=== PATIENT | male | born 1965 | race Caucasian/White ===

== ENCOUNTER 2017-07-27 17:13 | Inpatient (IN) | payer OTHER ==
[2017-07-25 09:36] VITALS: BMI 30.4
--- OUTSIDE RECORDS SUMMARY | 2017-07-27 17:16 | XMS | Clinical Summary ---
:1965 Author Organization [facility] Address [address] [place] [address] Phone Care Team Providers Name Role Phone , Primary Care Provider Unavailable Allergies Not on File Current Medications Not on file Active Problems Not on file Social History Tobacco Use Types Packs/Day Years Used Date Never Assessed Sex Assigned at Date Recorded Not on file Last Filed Vital Signs Not on file Plan of Treatment Not on file Results Not on filefrom Last 3 Months
[2017-07-27] MEDS ORDERED: Acetaminophen/Codeine 30-300mg Tablet PO PRN ×2 (19:37)
[2017-07-27] MEDS: Gabapentin 300 MG CAP PO SCH (20:56)
[2017-07-27] MEDS: Rifaximin 550 MG TAB PO SCH (20:56)
[2017-07-27] MEDS: Cyclobenzaprine 10 MG TAB PO SCH (20:56)
[2017-07-27] MEDS: Insulin Detemir 100 UNITS/ML 50 UNITS in Pre-Filled Syringe SC SCH (21:01)
[2017-07-27] MEDS ORDERED: HumaLOG 300 UNITS/3 ML VIAL SC PRN ×2 (23:07)
[2017-07-27] MEDS ORDERED: Dextrose 50% Abboject 50 ML SYRINGE SLOW IVP PRN (23:07)
[2017-07-27] MEDS ORDERED: Dextrose 5% in Water 1,000 ML IV PRN (23:07)
--- NOTE | 2017-07-27 23:15 | PDOC.PN ---
- Subjective Encounter Start Date: 07/27/17 Encounter Start Time: 23:00 CC: Back pain Sub: Consult called for medical management. Pt admitted for back surgery. Pt denies any complaints - Objective Vital Signs & Weight: Vital Signs (12 hours) Temp Pulse Pulse Pulse Resp BP BP 07/27/17 22:56 97.9 F 70 18 118/63 07/27/17 22:19 98.2 F 66 18 114/70 07/27/17 20:00 98.2 F 66 18 07/27/17 18:43 98.3 F 71 18 BP Pulse Ox 07/27/17 22:56 96 07/27/17 22:19 98 07/27/17 20:00 114/70 98 07/27/17 18:43 131/79 98 Weight Weight 200 lb I&O: 07/26/17 07/27/17 07/28/17 06:59 06:59 06:59 Intake Total 0 Balance 0 Additional Labs: Accuchecks 07/27/17 20:49 POC Glucose 148 H Phys Exam - Physical Examination Constitutional: NAD HEENT: moist MMs Neck: no JVD Respiratory: no wheezing, no rales, no rhonchi normal effort Cardiovascular: RRR, no significant murmur, no rub no gallop Gastrointestinal: soft, non-tender no guarding, no rebound tenderness Musculoskeletal: no edema Neurological: non-focal, normal sensation, moves all 4 limbs Psychiatric: normal affect Skin: no rash Dx/Plan - Plan * . Pt is 52 yrs old male now admitted to hospital for back pain 1. HTN 2. DM type 2 3. Thrombocytopenia 4. H/O Hepatitis B 5. Back pain Plan: 1. Will continue bp meds. We will monitor BP closely 2. Monitor blood sugars. Will start insulin sliding scale. 3. currently getting platelet transfusion. We will monitor platelet count 4. Pain + DVT & GI prophylaxis per primary team case d/w pt & RN
[2017-07-28] MEDS: Sodium Chloride 0.9% 1,000 ML IV SCH ×2 (01:07→05:47)
[2017-07-28 06:10] LABS: Anion Gap 10 mmol/L (10-20); BUN (Urea Nitrogen) 14 mg/dL (8.4-25.7); Calc. Creatinine Clearance 123 mL/min (70-130); Calcium 8.8 mg/dL (7.8-10.44); Carbon Dioxide 24 mmol/L (22-29); Chloride 108 mmol/L (98-107); Estimated GFR-MDRD 90
[2017-07-28 06:24] LABS: #Basophils 0.1 thou/uL (0.0-0.2); #Eosinphils 0.1 thou/uL (0.0-0.7); #Lymphocytes 1.1 thou/uL (1.20-3.40); #Monocytes 0.3 thou/uL (0.11-0.59); #Neutrophils 1.9 thou/uL (1.40-6.50); %Basophils 1.7 % (0.0-1.0); %Eosinophils 3.6 % (0.0-10.0); %Lymphocytes 31.3 % (21.0-51.0); %Monocytes 9.1 % (0.0-10.0); Hematocrit 40.1 % (42.0-52.0); Mean Platelet Volume 7.9 fL (7.4-10.4); Red Blood Cell (RBC) Count 4.37 mill/uL (4.70-6.10); White Blood Cell (WBC) Count 3.5 thou/uL (4.8-10.8)
[2017-07-28] MEDS ORDERED: Sodium Chloride 0.9% 10 ML ONE (06:26)
[2017-07-28] MEDS ORDERED: Levofloxacin 500 mg/D5W 100 ml Premix Bag ONE (07:43)
[2017-07-28] MEDS ORDERED: Clindamycin/D5W 900 mg/50 ml Premix Bag ONE (07:44)
[2017-07-28] MEDS ORDERED: Fentanyl 100 MCG/2 ML VIAL ONE ×5 (08:04→12:23)
[2017-07-28] MEDS ORDERED: Propofol 1,000 MG/100 ML VIAL IV ONE (08:05)
[2017-07-28] MEDS ORDERED: Dexamethasone 20 MG/5 ML VIAL ONE (08:40)
[2017-07-28] MEDS ORDERED: diphenhydrAMINE HCl 50 MG/ML 1 ML VIAL ONE (08:40)
[2017-07-28] MEDS ORDERED: Propofol 200 MG/20 ML VIAL ONE (08:40)
[2017-07-28] MEDS ORDERED: Glycopyrrolate 0.2 MG/ML 5 ML SYRINGE ONE (08:40)
[2017-07-28] MEDS ORDERED: Ondansetron HCl/PF 4 MG/2 ML Vial ONE (08:40)
[2017-07-28] MEDS ORDERED: Meperidine HCl/PF 25 MG/ML VIAL SLOW IVP PRN (09:27)
--- NOTE | 2017-07-28 10:23 | OP ---
DATE OF PROCEDURE: 07/28/2017 SURGEON: Ralph Tapia M.D. BILL CLERK: Chris Hsieh PA-C PROCEDURE: Exploration spinal fusion L4-5, L4-L5 laminectomy, facetectomy, and foraminotomy, interb terri arthrodesis, posterolateral arthrodesis, pedicle screw instrumentation L5-S1, demineralized bone matrix, local morselized autograft. PROCEDURE IN DETAIL: The patient was brought into the operating room and intubated. He was rolled in the prone position on gel-filled chest rolls. The previous incision was reopened and extended in feriorly. We exposed the region of the prior fusion and it seemed to be solid. Because there were no posterior screws at L5, we did not remove any hardware. We performed a left L5-S1 laminectomy, f acetectomy, and foraminotomy, completely decompressing left L5. We explored the intervertebral disk for the purpose of intravertebral arthrodesis. We ultimately had decided that the corridor was too narrow to place an intervertebral device. We next placed pedicle screws at L5 and S1 bilaterally u sing lateral fluoroscopic guidance and the positioning was confirmed with rotational x-ray. Alexandr was secured between the screws and used for some distraction across left L5 neural foramen. All nuts w ere final tightened and the wound was extensively irrigated with Bacitracin irrigation and immaculat e hemostasis was secured. A combination of demineralized bone matrix and local morselized autograft was laid over the laminar and posterolateral surfaces for the purpose of arthrodesis. Vancomycin p owder was applied and the wound was closed in anatomic layers over a drain.
[2017-07-28] MEDS ORDERED: Acetaminophen 325 MG TAB PO PRN (11:00)
[2017-07-28] MEDS ORDERED: Morphine Sulfate 2 MG/ML SYRINGE SLOW IVP PRN (11:00)
[2017-07-28] MEDS ORDERED: Ondansetron HCl/PF 4 MG/2 ML Vial IVP PRN (11:00)
[2017-07-28] MEDS ORDERED: Acetaminophen/Codeine 30-300mg Tablet PO PRN ×2 (11:00)
[2017-07-28] MEDS ORDERED: Acetaminophen 650 MG Suppository PR PRN (11:00)
[2017-07-28] MEDS ORDERED: Promethazine HCl 25 MG/ML VIAL IM PRN (11:00)
[2017-07-28] MEDS ORDERED: HYDROcodone/Acetaminophen 7.5/325 mg Tablet PO PRN ×2 (11:00)
[2017-07-28] MEDS ORDERED: tiZANidine HCl 4 MG TAB PO PRN (11:00)
[2017-07-28] MEDS ORDERED: diphenhydrAMINE HCl 25 MG CAP PO PRN (11:00)
[2017-07-28] MEDS ORDERED: Mag-Al 1200 mg/1200 mg/30 ML UDCUP PO PRN (11:00)
[2017-07-28] MEDS ORDERED: diphenhydrAMINE HCl 50 MG/ML 1 ML VIAL IVP PRN (11:00)
[2017-07-28] MEDS ORDERED: Milk Of Magnesia 30 ML UDCUP PO PRN (11:00)
[2017-07-28] MEDS ORDERED: Sodium Chloride 0.9% 1,000 ML IV SCH (11:00)
[2017-07-28] MEDS ORDERED: Promethazine HCl 12.5 MG SUPP PR PRN (11:00)
[2017-07-28] MEDS ORDERED: Promethazine HCl 25 MG/ML VIAL ONE (12:41)
[2017-07-28] MEDS: Gabapentin 300 MG CAP PO SCH ×3 (16:02→20:21)
[2017-07-28] MEDS: Cyclobenzaprine 10 MG TAB PO SCH ×3 (16:02→20:21)
[2017-07-28] MEDS: Rifaximin 550 MG TAB PO SCH ×2 (16:11→20:21)
[2017-07-28] MEDS: Insulin Regular 300 UNITS/3 ML VIAL SC SCH ×2 (16:11→18:21)
[2017-07-28] MEDS ORDERED: Insulin Regular 300 UNITS/3 ML VIAL ONE (18:16)
[2017-07-28] MEDS: Insulin Detemir 100 UNITS/ML 50 UNITS in Pre-Filled Syringe SC SCH (20:21)
[2017-07-28] MEDS ORDERED: Non-Formulary Item 1 EACH (Insulin Glargine,Hum.Rec.Anlog 50 UNIT) SQ SCH (21:00)
[2017-07-28] MEDS ORDERED: Non-Formulary Item 1 EACH (Omeprazole Magnesium [Prilosec Otc] 20 MG) PO SCH (21:00)
--- NOTE | 2017-07-28 21:25 | PRG ---
DATE OF SERVICE: 07/28/2017 SUBJECTIVE: This patient is doing a little better today. Denies any complaints. No nausea, no vom iting. He is going to go for back surgery today. PHYSICAL EXAMINATION: VITAL SIGNS: The patient's blood pressure is 130/82, afebrile, pulse 68, respirations 16. GENERAL: Patient is lying in bed in no apparent distress. HEENT: Atraumatic, normocephalic. Pupils equally round and react to light. Extraocular movements intact. Mucous membranes moist. NECK: Supple. No JVD. CHEST: Breath sounds heard. No rales or rhonchi. HEART: S1, S2. No murmurs or gallops. ABDOMEN: Soft. EXTREMITIES: No cyanosis, clubbing, edema. Distal pulses present. NEUROLOGIC: Alert, awake, and oriented. No cranial deficits. No sensorimotor deficits. LABORATORY DATA: WBC count is 3.5, hemoglobin is 14, potassium is 3.9, creatinine is 0.8. ASSESSMENT AND PLAN: 1. Back pain, follow primary care for surgery today. 2. Hypertension, stable. 3. Diabetes, on insulin sliding scale 4. Thrombocytopenia. We will monitor that. 5. History of hepatitis C, stable. Will work with primary for the
[2017-07-29] MEDS: Gabapentin 300 MG CAP PO SCH (08:31)
[2017-07-29] MEDS: Cyclobenzaprine 10 MG TAB PO SCH (08:31)
[2017-07-29] MEDS: Rifaximin 550 MG TAB PO SCH (08:31)
[2017-07-29] MEDS: Insulin Regular 300 UNITS/3 ML VIAL SC SCH (08:33)
[2017-07-29 08:54] VITALS: BP 113/68; TEMP 97.5
--- NOTE | 2017-07-29 11:47 | PDOC.PN ---
- Subjective Encounter Start Date: 07/29/17 Encounter Start Time: 11:45 Patient seen and examined. No new complaints. No overnight events - Objective MAR Reviewed: Yes Vital Signs & Weight: Vital Signs (12 hours) Temp Pulse Resp BP Pulse Ox 07/29/17 08:05 97.5 F L 62 18 113/68 96 07/29/17 04:15 98.2 F 70 16 101/57 L 95 07/29/17 00:00 98.4 F 71 16 112/68 94 L Weight Weight 200 lb I&O: 07/28/17 07/29/17 07/30/17 06:59 06:59 06:59 Intake Total 250 2350 500 Output Total 120 15 Balance 250 2230 485 Result Diagrams: 07/28/17 05:38 07/28/17 05:38 Additional Labs: Accuchecks 07/29/17 07/28/17 07/28/17 05:25 20:32 15:55 POC Glucose 281 H 390 H 244 H Phys Exam - Physical Examination HEENT: PERRLA Neck: no JVD Respiratory: no rales Cardiovascular: no significant murmur Gastrointestinal: non-tender Musculoskeletal: pulses present Neurological: moves all 4 limbs Psychiatric: A&O x 3 Dx/Plan (1) Diabetes mellitus Code(s): E11.9 - TYPE 2 DIABETES MELLITUS WITHOUT COMPLICATIONS Status: Acute (2) HTN (hypertension) Code(s): I10 - ESSENTIAL (PRIMARY) HYPERTENSION Status: Acute (3) Thrombocytopenia Code(s): D69.6 - THROMBOCYTOPENIA, UNSPECIFIED Status: Acute (4) Back pain Code(s): M54.9 - DORSALGIA, UNSPECIFIED Status: Acute - Plan * . continue current care, bp and sugar well controlled s/p back surg - f/u primary's plan
== END 2017-07-29 09:59 | disposition home or self-care (01) | DRG 460 ==
LOC: SURG A 17:13
PROVIDERS: ADMIT Neurological Surgery; ATTEND Neurological Surgery
PROC: 30233R1 Transfusion of Nonautologous Platelets into Peripheral Vein, Percutaneous Approach (ICD-10-PCS; 2017-07-27)
PROC: 0SG30A1 (ICD-10-PCS; principal; 2017-07-28)
PROC: 01NB0ZZ Release Lumbar Nerve, Open Approach (ICD-10-PCS; 2017-07-28)
PROC: 0SB40ZZ Excision of Lumbosacral Disc, Open Approach (ICD-10-PCS; 2017-07-28)
PROC: 8E0WXBF Computer Assisted Procedure of Trunk Region, With Fluoroscopy (ICD-10-PCS; 2017-07-28)
DX: M54.16 Radiculopathy, lumbar region (principal); D69.6 Thrombocytopenia, unspecified; I10 Essential (primary) hypertension; E11.9 Type 2 diabetes mellitus without complications; Z88.5 Allergy status to narcotic agent; Z88.0 Allergy status to penicillin; Z88.8 Allergy status to other drugs, medicaments and biological substances; Z86.19 Personal history of other infectious and parasitic diseases
CPT/HCPCS: 36415; 36416; 36430; 76001; 80048; 85025; 86850; 86900; 86901; A4216; C1713; C1768; J1100; J1200; J1815; J1956; J2270; J2405; J2550; J2704; J3010; J3370; J3490; P9035

== ENCOUNTER 2017-08-12 10:47 | Outpatient (CLI) | payer OTHER ==
--- NOTE | 2017-08-12 13:12 | RAD ---
TWO VIEWS LUMBAR SPINE: Comparison: 04-24-17 History: Follow up surgery. Low back pain radiating down the right leg. FINDINGS: Interval placement of bilateral transpedicular screws at L5 and S1. Stable transpedicular screws at L3-4. Stable disc prosthesis at L3-4 and stable metallic cage at L4-5. There is no significant rowley e in alignment. Dorsal column stimulator is re-demonstrated. IMPRESSION: Interval fusion changes of L5-S1. Additional findings as above. POS: [facility]
--- NOTE | 2017-08-12 16:13 | CT ---
CT OF THE LUMBAR SPINE WITHOUT CONTRAST: History: History of back surgery on 07-28-17 now with lower back pain radiating to the right leg. FINDINGS: Since the comparison examination there has been interval extension of the posterior lumbar interbody fusion from L3 through the S1 level. There is solid bony fusion involving the L3-4 and L4-5 interve rtebral levels. There are stable laminectomy changes involving the left aspect of L4 and L5. The right pedicle screw at S1 does abutt the margin of the superolateral aspect of the right S1 neur al foramina without definite impingement of the traversing S1 nerve. L5-S1: There is loss of disc space height and disc osteophyte complex inducing stable moderate right neural foraminal narrowing. The degree of neural foraminal narrowing involving the left neural fora jone is stable, mild in severity. The left L4-5 neural foramina is widely patent. There is stable mild right osseous neural foraminal narrowing. At L3-4 there is stable mild left neural foraminal narrowing. At L2-3 there is mild bilateral neural foraminal narrowing which is stable. At L1-2 there is mild broad based bulge without appreciable neural foraminal narrowing. At T12-L1 there is no appreciable central canal or neural foraminal narrowing. There is stable right nephrolithiasis. There is stable bulky adenopathy seen involving the retroperitoneum of the lower abdomen and pelvis. IMPRESSION: 1. Interval extension of the posterior lateral interbody fusion from L3 through S1. 2. The moderate right and mild left neural foraminal narrowing at L5-S1 is stable appearing. 3. Stable left neural foraminal narrowing at L3-4. 5. Persistent bulky adenopathy of the lower abdomen and pelvis. Differential considerations remain t he same as the prior examination from 08-20-16. CT of the abdomen and pelvis is recommended for furt her characterization. POS: [facility]
== END 2017-08-12 10:48 | disposition home or self-care (01) ==
LOC: TBSIIMAG 10:47
PROVIDERS: ATTEND Physician Assistant
DX: M54.16 Radiculopathy, lumbar region (principal); Z98.1 Arthrodesis status
CPT/HCPCS: 72100; 72131

== ENCOUNTER 2017-10-28 14:07 | Outpatient (CLI) | payer OTHER ==
[2017-10-28 14:50] LABS: Hematocrit 41.7 % (42.0-52.0); Mean Platelet Volume 8.1 fL (7.4-10.4); Red Blood Cell (RBC) Count 4.66 mill/uL (4.70-6.10); White Blood Cell (WBC) Count 4.3 thou/uL (4.8-10.8)
[2017-10-28 15:04] LABS: Anion Gap 10 mmol/L (10-20); BUN (Urea Nitrogen) 13 mg/dL (8.4-25.7); Calc. Creatinine Clearance 0 mL/min (70-130); Calcium 9.3 mg/dL (7.8-10.44); Carbon Dioxide 26 mmol/L (22-29); Chloride 107 mmol/L (98-107); Estimated GFR-MDRD 71
--- NOTE | 2017-10-28 18:05 | EKG ---
Test Reason : Blood Pressure : / mmHG Vent. Rate : 068 BPM Atrial Rate : 068 BPM P-R Int : 152 ms QRS Dur : 106 ms QT Int : 400 ms P-R-T Axes : 037 -18 015 degrees QTc Int : 425 ms Normal sinus rhythm Inferior infarct , age undetermined (possible, based on very small Q waves) Abnormal ECG Confirmed by DR. Anna BREWER (3) on 10/28/2017 6:05:05 PM Referred By: BJ Confirmed By:DR. Anna BREWER
== END 2017-10-28 14:08 | disposition home or self-care (01) ==
LOC: LABBT 14:07
PROVIDERS: ATTEND Neurological Surgery
DX: Z01.818 Encounter for other preprocedural examination (principal); M54.16 Radiculopathy, lumbar region
CPT/HCPCS: 80048; 93005; 93010

== ENCOUNTER 2017-10-29 06:06 | Inpatient (IN) | payer OTHER ==
[2017-10-29] MEDS ORDERED: Sodium Chloride 0.9% 10 ML ONE (06:24)
[2017-10-29] MEDS ORDERED: Clindamycin/D5W 900 mg/50 ml Premix Bag ONE (06:38)
[2017-10-29] MEDS ORDERED: Levofloxacin 500 mg/D5W 100 ml Premix Bag ONE (06:38)
[2017-10-29] MEDS ORDERED: Propofol 1,000 MG/100 ML VIAL IV ONE (06:52)
[2017-10-29] MEDS ORDERED: Fentanyl 100 MCG/2 ML VIAL ONE ×2 (07:04→09:30)
[2017-10-29] MEDS ORDERED: Midazolam HCl 2 mg/2 ml Vial ONE (07:04)
[2017-10-29] MEDS ORDERED: diphenhydrAMINE 25 MG CAP PO PRN ×2 (09:28→14:13)
[2017-10-29] MEDS ORDERED: Mag-Al 1200 mg/1200 mg/30 ML UDCUP PO PRN (09:28)
[2017-10-29] MEDS ORDERED: diphenhydrAMINE 50 MG/ML VIAL IVP PRN (09:28)
[2017-10-29] MEDS ORDERED: Milk Of Magnesia 30 ML UDCUP PO PRN (09:28)
[2017-10-29] MEDS ORDERED: Bisacodyl 10 MG SUPP PR PRN (09:28)
[2017-10-29] MEDS ORDERED: HYDROcodone/Acetaminophen 10/325 mg Tablet PO PRN ×2 (09:28)
[2017-10-29] MEDS ORDERED: Acetaminophen 650 MG Suppository PR PRN (09:28)
[2017-10-29] MEDS ORDERED: Morphine 4 MG/ML Carpuject SLOW IVP PRN ×2 (09:28→11:27)
[2017-10-29] MEDS ORDERED: Ondansetron HCl/PF 4 MG/2 ML Vial IM PRN (09:28)
--- NOTE | 2017-10-29 09:54 | OP ---
DATE OF SERVICE: 10/29/2017 SURGEON: Ralph Tapia M.D. RIVER GUIDE: Maria Isabel Mckeon PROCEDURE: Exploration of spinal fusion L5-S1, removal of hardware L5-S1, right L5-S1 facetectomy an d foraminotomy, posterolateral arthrodesis, pedicle screw instrumentation L5-S1, demineralized bone m atrix, local morselized autograft, BMP. PROCEDURE IN DETAIL: The patient was brought into the operating room, intubated. He was rolled in t he prone position on gel-filled chest rolls. The previous incision was reopened and the L5-S1 region was explored. There was no evidence of solid bony fusion and both sacral screws seemed to be somewh at loose. The prior nuts and rods were removed and both sacral screws were removed. We replaced the se with 8.5 mm diameter, 40 mm length screws at both S1 levels. Next, we performed a complete right L5-S1 facetectomy and foraminotomy and completely decompressed the right L5 nerve root. Rods were se cured between the screws, connected by nuts which were final tightened. A combination of BMP deminer alized bone matrix and local morselized autograft was laid over the laminar and posterolateral surfac es for the purpose of arthrodesis. Vancomycin powder was applied and the wound was closed in anatomi c layers.
[2017-10-29] MEDS ORDERED: Morphine 4 MG/ML VIAL ONE (10:05)
[2017-10-29] MEDS ORDERED: HYDROmorphone 0.5 MG/0.5 ML SYRINGE ONE (10:20)
[2017-10-29] MEDS ORDERED: Ketorolac Tromethamine 30 MG/ML VIAL ONE (10:33)
[2017-10-29] MEDS: Sodium Chloride 0.9% 1,000 ML IV SCH ×2 (11:00→23:20)
[2017-10-29] MEDS ORDERED: Non-Formulary Medication 1 EACH PO PRN (11:27)
[2017-10-29] MEDS ORDERED: Ondansetron HCl/PF 4 MG/2 ML Vial IVP PRN (11:27)
[2017-10-29] MEDS ORDERED: Ketorolac Tromethamine 30 MG/ML VIAL IM/IV PRN (11:27)
[2017-10-29] MEDS ORDERED: HYDROmorphone 2 MG/ML VIAL SLOW IVP PRN (11:27)
[2017-10-29] MEDS ORDERED: Morphine Sulfate 2 MG/ML SYRINGE SLOW IVP PRN (11:27)
[2017-10-29] MEDS ORDERED: Morphine 4 MG/ML VIAL SLOW IVP PRN ×2 (11:30)
[2017-10-29] MEDS: Ondansetron HCl/PF 4 MG/2 ML Vial IVP PRN (11:48)
--- NOTE | 2017-10-29 12:36 | PDOC.PN ---
- Subjective Encounter Start Date: 10/29/17 Encounter Start Time: 12:30 Subjective: c/o pain at operated site, just got morphine for it -: no sob or chest pain or palp -: is moving both lower extremities - Objective MAR Reviewed: Yes Vital Signs & Weight: Weight Weight 208 lb Additional Labs: Accuchecks 10/29/17 06:36 POC Glucose 193 H Phys Exam - Physical Examination HEENT: PERRLA, moist MMs Neck: no JVD, supple Respiratory: no wheezing, no rales Cardiovascular: RRR, no significant murmur Gastrointestinal: soft, non-tender, positive bowel sounds Musculoskeletal: no edema, pulses present Neurological: non-focal, moves all 4 limbs Psychiatric: A&O x 3 Dx/Plan (1) Diabetes mellitus Code(s): E11.9 - TYPE 2 DIABETES MELLITUS WITHOUT COMPLICATIONS Status: Chronic Qualifiers: Diabetes mellitus type: type 2 Diabetes mellitus complication status: with unspecified complications Diabetes mellitus detention insulin use: with detention use Qualified Code(s): E11.8 - Type 2 diabetes mellitus with unspecified complications; 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; Z79.4 - intermediate ( current) use of insulin; 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 Review of Systems - Medications/Allergies Allergies/Adverse Reactions: Allergies Allergy/AdvReac Type Severity Reaction Status Date / Time codeine Allergy Verified 07/25/17 09:36 Penicillins Allergy Verified 07/25/17 09:36 promethazine [From Phenergan] Allergy Verified 07/25/17 09:36 Medications: Current Medications Acetaminophen (Tylenol) 650 mg PO Q4H PRN PRN Reason: Headache/Fever or Pain(1-3) Acetaminophen (Tylenol) 650 mg SC Q4H PRN PRN Reason: Headache/Fever or Pain(1-3) Hydrocodone Bitart/Acetaminophen ([place] 10/325) 1 tab PO Q4H PRN PRN Reason: PAIN (1-3) Hydrocodone Bitart/Acetaminophen ([place] 10/325) 2 tab PO Q4H PRN PRN Reason: PAIN (4-6) Last Admin: 10/29/17 11:51 Dose: 2 tab Al Hydroxide/Mg Hydroxide (Maalox) 30 ml PO Q4H PRN PRN Reason: Heartburn or Indigestion Alogliptin Benzoate (Alogliptin) 12.5 mg PO QPM-WM SHIRIN Bisacodyl (Dulcolax) 10 mg SC Q12H PRN PRN Reason: Constipation Diphenhydramine HCl (Benadryl) 25 mg PO Q6H PRN PRN Reason: Itching Diphenhydramine HCl (Benadryl) 25 mg IVP Q6H PRN PRN Reason: Itching Fentanyl (Pacu-Sublimaze) 50 mcg SLOW IVP Q10MIN PRN PRN Reason: Moderate to Severe Pain/PACU Stop: 10/29/17 13:00 Gabapentin (Neurontin) 600 mg PO TID SHIRIN Hydromorphone HCl (Pacu-Dilaudid) 0.5 mg SLOW IVP Q10MIN PRN PRN Reason: Moderate to Severe Pain/PACU Stop: 10/29/17 13:00 Sodium Chloride (Normal Saline 0.9%) 1,000 mls @ 75 mls/hr IV .[id number] [facility] Clindamycin Phosphate/Dextrose (900 mg/ Device) 50 mls @ 100 mls/hr IVPB 1500, 2300 SHIRIN Stop: 10/29/17 23:29 Insulin Detemir 20 units/ (Miscellaneous Medication) 0.2 mls @ 0 mls/hr SC HS [facility] Insulin Human Lispro (Humalog) 0 units SC .CLARIFY SS PRN PRN Reason: HYPERGLYCEMIA Ketorolac Tromethamine (Pacu-Toradol) 30 mg IM/IV ONE PRN PRN Reason: Pain if not already given/OR Stop: 10/29/17 13:00 Magnesium Hydroxide (Milk Of Magnesium) 30 ml PO Q12H PRN PRN Reason: Constipation Metformin HCl (Glucophage) 1,000 mg PO QPM-WM [facility] Metoprolol Succinate (Toprol Xl) 25 mg PO BID [facility] Morphine Sulfate (Morphine) 4 mg SLOW IVP Q1H PRN PRN Reason: Severe Breakthrough Pain Last Admin: 10/29/17 11:48 Dose: 4 mg Morphine Sulfate (Morphine) 2 mg SLOW IVP Q1H PRN PRN Reason: Moderate Breakthrough Pain Morphine Sulfate (Pacu-Morphine Sulfate) 2 mg SLOW IVP Q10MIN PRN PRN Reason: Moderate to Severe Pain/PACU Stop: 10/29/17 13:00 Morphine Sulfate (Morphine) 4 mg SLOW IVP ONE PRN PRN Reason: Moderate - Severe Pain Stop: 10/29/17 13:00 Non-Formulary Medication () 0 each PO PRN PRN PRN Reason: FOR RR<12 OR O2 SAT<92%ON RA Stop: 10/29/17 13:00 Ondansetron HCl (Zofran) 4 mg IM Q24H PRN PRN Reason: Nausea/Vomiting Last Admin: 10/29/17 11:48 Dose: 4 mg Ondansetron HCl (Pacu-Zofran) 4 mg IVP ONE PRN PRN Reason: Nausea/Vomiting in PACU Stop: 10/29/17 13:00 Pantoprazole Sodium (Protonix) 40 mg PO BID [facility] Rifaximin (Xifaxan) 550 mg PO BID [facility] Sodium Chloride (Flush - Normal Saline) 10 ml IVF PRN PRN PRN Reason: Saline Flush Tizanidine HCl (Zanaflex) 4 mg PO Q6H PRN PRN Reason: MUSCLE SPASM
[2017-10-29] MEDS: Gabapentin 300 MG CAP PO SCH ×2 (13:25→20:53)
[2017-10-29] MEDS: tiZANidine HCl 4 MG TAB PO PRN (14:10)
[2017-10-29] MEDS ORDERED: Naloxone HCl 0.4 mg/ml Vial IV PRN (14:13)
[2017-10-29] MEDS ORDERED: Promethazine HCl 25 MG/ML VIAL IM PRN (14:13)
[2017-10-29] MEDS ORDERED: diphenhydrAMINE 50 MG/ML VIAL IM/IV PRN (14:13)
[2017-10-29] MEDS ORDERED: Zolpidem Tartrate 5 MG TAB PO PRN (14:13)
[2017-10-29] MEDS ORDERED: Acetaminophen 1,000 MG in Premix Bag 1 BAG IVPB PRN (14:22)
[2017-10-29] MEDS: HYDROmorphone 10 mg/100 ml CADD IV PRN (14:47)
[2017-10-29] MEDS: Clindamycin/D5W 900 MG in Premix Bag 1 BAG IVPB SCH ×2 (14:58→23:21)
[2017-10-29] MEDS ORDERED: Dexamethasone 20 MG/5 ML VIAL ONE (15:45)
[2017-10-29] MEDS ORDERED: PHENYLEPHRINE-NS 100 MCG/ML 10 ML SYRINGE ONE (15:45)
[2017-10-29] MEDS ORDERED: Succinylcholine Chloride 20 MG/ML 10 ml SYRINGE FS ONE (15:45)
[2017-10-29] MEDS ORDERED: Ondansetron HCl/PF 4 MG/2 ML Vial ONE (15:45)
[2017-10-29] MEDS ORDERED: Propofol 200 MG/20 ML VIAL ONE (15:45)
[2017-10-29] MEDS ORDERED: Lidocaine 1% PF 5 ML VIAL ONE (15:45)
[2017-10-29] MEDS: Alogliptin 25 MG TAB PO SCH (19:08)
[2017-10-29] MEDS: metFORMIN 500 MG TAB PO SCH (19:08)
[2017-10-29] MEDS: Ketorolac Tromethamine 30 MG/ML VIAL IVP SCH ×2 (19:42→23:21)
[2017-10-29] MEDS: Insulin Detemir 100 UNITS/ML 20 UNITS in Pre-Filled Syringe 1 EACH SC SCH (20:53)
[2017-10-29] MEDS: Rifaximin 550 MG TAB PO SCH (20:53)
[2017-10-29] MEDS ORDERED: Dextrose 5% in Water 1,000 ML IV PRN (21:39)
[2017-10-29] MEDS ORDERED: Dextrose 50% Abboject 50 ML SYRINGE IVP PRN (21:39)
[2017-10-30] MEDS: Ketorolac Tromethamine 30 MG/ML VIAL IVP SCH (05:31)
[2017-10-30] MEDS: HumaLOG 300 UNITS/3 ML VIAL SC PRN ×2 (06:37→12:29)
[2017-10-30] MEDS: tiZANidine HCl 4 MG TAB PO PRN (07:23)
[2017-10-30] MEDS: Tamsulosin HCl 0.4 MG CAP PO SCH (07:23)
[2017-10-30] MEDS: Gabapentin 300 MG CAP PO SCH ×3 (08:29→20:40)
[2017-10-30] MEDS: Rifaximin 550 MG TAB PO SCH ×2 (08:29→20:40)
[2017-10-30 09:17] LABS: Bilirubin Negative (Negative); Blood, Urine Small (Negative); Clarity CLEAR (Clear); Glucose, Urine (Dipstick) >=1000 mg/dL (Negative); Leukocyte Negative (Negative); Nitrite Negative (Negative); Protein, Urine (Dipstick) Negative (Neg-Trace); Specific Gravity, Urine 1.026 (1.002-1.036); Urobilinogen 0.2 mg/dL (0.2-1.0)
[2017-10-30 09:21] LABS: Bacteria/HPF None Seen HPF (None Seen); Hyaline Casts/LPF 0-3 HYALINE CAST LPF (0-3 Hyaline); Pathc Cast-AUWi Flag 0.13 (0-2.49); Squamous Epithelial 0-3 HPF (0-3); WBC/HPF 0-3 HPF (0-3)
--- NOTE | 2017-10-30 09:36 | CON ---
DATE OF CONSULTATION: 10/30/2017 INPATIENT CONSULTATION REASON FOR CONSULT: Postop urinary retention. HISTORY OF PRESENT ILLNESS: Mr. Clarke is a pleasant 52-year-old male postop day #1 status post removal of hardware of L5-S1, L5-S1 foraminotomy. The patient has urologic history of recurrent kidney stones with multiple spontaneous passages. He is followed by an urologist in [place], [place], Dr. Spencer, Dr. Malik. He has had numerous lithotripsies and ureteroscopies last performed few years ago. He relates history of recurrent urinary retention with narcotic medication. As a baseline, patient denies obstructive urinary symptoms. He has previously provided Flomax with passage of kidney stones; however, denies routine Flomax daily due to BPH symptoms. A Carbajal catheter was removed per Neurosurgery protocol, as he had urinary dribbling unable to pass his urine, bladder scan was performed demonstrating 300 mL of postvoid residual. He denies dysuria or gross hematuria. PAST MEDICAL HISTORY: Includes recurrent kidney stone, diabetes, hypertension, lumbar radiculopathy. PAST SURGICAL HISTORY: Laparoscopic cholecystectomy, anterior lumbar fusion, recent L5-S1 foraminectomy. ALLERGIES: CODEINE, PENICILLIN, PROMETHAZINE. 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 Denies family history of prostate cancer. PHYSICAL EXAMINATION: VITAL SIGNS: Stable at 98, 77, 16, 97, 111/63. HEENT: Unremarkable. HEART: Regular rate. LUNGS: Clear. ABDOMEN: Soft, nontender, and nondistended. Laparoscopic incision and left lower quadrant transverse incision noted consistent with his surgical history. GENITOURINARY: Circumcised phallus, meatus is grossly unremarkable. Testes descended with no evidence of intratesticular mass. RECTAL: Digital rectal exam demonstrated no significant stool in the rectal vault, prostate approximately 35 grams with no discrete nodularity, nontender. EXTREMITIES: No cyanosis, clubbing or edema. PERTINENT LABORATORY DATA: White count 4, hemoglobin 14, platelet is 65 on , creatinine is 1.08. IMPRESSION/PLAN: 1. Mr. Clarke is a 52-year-old male postop day #1, L5-S1 lumbar surgery by Dr. Tapia, postoperative urinary retention. 2. History retention exacerbated by narcotic use. Patient currently on Dilaiudid [employer]INGER. His postvoid residual is mildly elevated, I do recommend bladder rehab at this time voiding every 6 hours with PVR check. If postvoid residual is greater than 250 mL, I do recommend CIC p.r.n. I do expect resolution as he tends to have recurrent retention with narcotic use. Flomax 0.4 mg one p.o. daily is advised. UA culture and sensitivity to be sent. We will follow along with you on this admission. The patient reassured. SERGEID
--- NOTE | 2017-10-30 10:06 | PDOC.PN ---
- Subjective Encounter Start Date: 10/30/17 Encounter Start Time: 09:50 Subjective: had urinary retention due to dilaudid/narcotics -: pain is better this am -: no sob - Objective MAR Reviewed: Yes Vital Signs & Weight: Vital Signs (12 hours) Temp Pulse Resp BP Pulse Ox 10/30/17 08:00 98.4 F 75 18 151/84 H 98 10/30/17 04:42 98.0 F 77 16 111/63 97 10/30/17 00:09 98.3 F 65 18 112/68 96 Weight Weight 208 lb Additional Labs: Accuchecks 10/30/17 10/30/17 10/29/17 08:37 06:17 20:36 POC Glucose 261 H 246 H 376 H Phys Exam - Physical Examination HEENT: PERRLA, moist MMs Neck: no JVD, supple Respiratory: no wheezing, no rales Cardiovascular: RRR, no significant murmur Gastrointestinal: soft, non-tender, positive bowel sounds Musculoskeletal: no edema, pulses present Neurological: non-focal, moves all 4 limbs Psychiatric: A&O x 3 Dx/Plan (1) Diabetes mellitus Code(s): E11.9 - TYPE 2 DIABETES MELLITUS WITHOUT COMPLICATIONS Status: Chronic Qualifiers: Diabetes mellitus type: type 2 Diabetes mellitus complication status: with unspecified complications Diabetes mellitus group home insulin use: with terminal superintendent use Qualified Code(s): E11.8 - Type 2 diabetes mellitus with unspecified complications; Z79.4 - halfway (current) use of insulin; Z79.4 - halfway ( current) use of insulin; Z79.4 - roasterman (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) use of insulin; Z79.4 - roasterman (current) use of insulin (2) HTN (hypertension) Code(s): I10 - ESSENTIAL (PRIMARY) HYPERTENSION Status: Chronic Qualifiers: Hypertension type: essential hypertension Qualified Code(s): I10 - Essential (primary) hypertension (3) Radiculopathy Code(s): M54.10 - RADICULOPATHY, SITE UNSPECIFIED Status: Chronic Comment: s /p lumbar [id number] removal with foraminotomy 10/29/17 (4) Urinary retention Code(s): R33.9 - RETENTION OF URINE, UNSPECIFIED Status: Acute - Plan is on flomax, q6h residual checks, urology has seen him this am -: labs in am -: is on dilaudid 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 Review of Systems - Medications/Allergies Allergies/Adverse Reactions: Allergies Allergy/AdvReac Type Severity Reaction Status Date / Time codeine Allergy Verified 07/25/17 09:36 Penicillins Allergy Verified 07/25/17 09:36 promethazine [From Phenergan] Allergy Verified 07/25/17 09:36 Medications: Current Medications Acetaminophen (Tylenol) 650 mg PO Q4H PRN PRN Reason: Headache/Fever or Pain(1-3) Acetaminophen (Tylenol) 650 mg SD Q4H PRN PRN Reason: Headache/Fever or Pain(1-3) Al Hydroxide/Mg Hydroxide (Maalox) 30 ml PO Q4H PRN PRN Reason: Heartburn or Indigestion Alogliptin Benzoate (Alogliptin) 12.5 mg PO QPM-[facility] Last Admin: 10/29/17 19:08 Dose: 12.5 mg Bisacodyl (Dulcolax) 10 mg SD Q12H PRN PRN Reason: Constipation Dextrose/Water (Dextrose 50%) 25 gm IVP PRN PRN PRN Reason: HYPOGLYCEMIA PROTOCOL Diphenhydramine HCl (Benadryl) 25 mg IM/IV Q3H PRN PRN Reason: Itching Diphenhydramine HCl (Benadryl) 25 mg PO Q3H PRN PRN Reason: Itching Gabapentin (Neurontin) 600 mg PO TID [facility] Last Admin: 10/30/17 08:29 Dose: 600 mg Glucagon (Glucagon) 1 mg IM PRN PRN PRN Reason: HYPOGLYCEMIA PROTOCOL Hydromorphone HCl (Dilaudid Cadd) 0 mg IV INF PRN PRN Reason: Pain Last Admin: 10/29/17 14:47 Dose: 10 mg Sodium Chloride (Normal Saline 0.9%) 1,000 mls @ 75 mls/hr IV .[id number] [facility] Last Admin: 10/29/17 23:20 Dose: Not Given Insulin Detemir 20 units/ (Miscellaneous Medication) 0.2 mls @ 0 mls/hr SC HS [facility] Last Admin: 10/29/17 20:53 Dose: 0.2 mls Acetaminophen 1,000 mg/ Device 100 mls @ 400 mls/hr IVPB Q6H PRN PRN Reason: FEVER/ Mod- Severe Pain (6-10) Stop: 10/30/17 14:23 Last Admin: 10/30/17 07:23 Dose: 100 mls Dextrose/Water (D5w) 1,000 mls @ 0 mls/hr IV INF PRN; As Directed PRN Reason: HYPOGLYCEMIA PROTOCOL Insulin Detemir 20 units/ (Miscellaneous Medication) 0.2 mls @ 0 mls[facility] [place] Human Lispro (Humalog) 0 units SC .MILD SLIDING SCALE PRN PRN Reason: HYPERGLYCEMIA Last Admin: 10/30/17 06:37 Dose: 3 unit Ketorolac Tromethamine (Toradol) 30 mg IVP Q6HR [facility] Stop: 10/31/17 12:01 Last Admin: 10/30/17 05:31 Dose: 30 mg Magnesium Hydroxide (Milk Of Magnesium) 30 ml PO Q12H PRN PRN Reason: Constipation Metformin HCl (Glucophage) 1,000 mg PO QPM-[facility] Last Admin: 10/29/17 19:08 Dose: 1,000 mg Metoprolol Succinate (Toprol Xl) 25 mg PO BID [facility] Last Admin: 10/30/17 08:29 Dose: 25 mg Naloxone HCl (Narcan) 0.2 mg IV Q5MIN PRN PRN Reason: RR <8 or pt obtun/unarousable Ondansetron HCl (Zofran) 4 mg IM Q24H PRN PRN Reason: Nausea/Vomiting Ondansetron HCl (Zofran) 4 mg IVP Q6H PRN PRN Reason: Nausea/Vomiting Last Admin: 10/29/17 11:48 Dose: 4 mg Pantoprazole Sodium (Protonix) 40 mg PO BID [facility] Last Admin: 10/30/17 08:29 Dose: 40 mg Promethazine HCl (Phenergan) 12.5 mg IM Q4H PRN PRN Reason: Nausea/Vomiting Rifaximin (Xifaxan) 550 mg PO BID [facility] Last Admin: 10/30/17 08:29 Dose: 550 mg Sodium Chloride (Flush - Normal Saline) 10 ml IVF PRN PRN PRN Reason: Saline Flush Tamsulosin HCl (Flomax) 0.4 mg PO DAILY SHIR[facility] Last Admin: 10/30/17 07:23 Dose: 0.4 mg Tizanidine HCl (Zanaflex) 4 mg PO Q6H PRN PRN Reason: MUSCLE SPASM Last Admin: 10/30/17 07:23 Dose: 4 mg Zolpidem Tartrate (Ambien) 5 mg PO HSPRN PRN PRN Reason: Insomnia
[2017-10-30 10:18] LABS: #Eosinphils 0.1 thou/uL (0.0-0.7); #Monocytes 0.7 thou/uL (0.11-0.59); #Neutrophils 5.1 thou/uL (1.40-6.50); %Basophils 0.2 % (0.0-1.0); %Lymphocytes 14.9 % (21.0-51.0); %Monocytes 9.9 % (0.0-10.0); Hemoglobin 11.4 g/dL (14.0-18.0); Mean Corpuscular Hemoglobin 30.7 pg (27.0-31.0); Mean Corpuscular Volume 90.1 fl (80.0-94.0); Platelet Count 50 thou/uL (130-400); RBC Distribution Width 13.7 % (11.5-14.5); Red Blood Cell (RBC) Count 3.72 mill/uL (4.70-6.10); White Blood Cell (WBC) Count 6.9 thou/uL (4.8-10.8)
[2017-10-30 10:34] LABS: Anion Gap 11 mmol/L (10-20); BUN (Urea Nitrogen) 23 mg/dL (8.4-25.7); Calc. Creatinine Clearance 103 mL/min (70-130); Calcium 9.4 mg/dL (7.8-10.44); Carbon Dioxide 23 mmol/L (22-29); Chloride 103 mmol/L (98-107); Estimated GFR-MDRD 70; Glucose 283 mg/dL (70-105); Potassium 4.3 mmol/L (3.5-5.1); Sodium 133 mmol/L (136-145)
[2017-10-30] MEDS: Ondansetron HCl/PF 4 MG/2 ML Vial IVP PRN (10:38)
[2017-10-30] MEDS: Insulin Detemir 100 UNITS/ML 20 UNITS in Pre-Filled Syringe 1 EACH SC SCH ×2 (10:38→20:41)
[2017-10-30 12:52] LABS: Hemoglobin A1c 7.2 % (4.0-6.0)
[2017-10-30] MEDS: Sodium Chloride 0.9% 1,000 ML IV SCH (13:28)
[2017-10-30] MEDS: metFORMIN 500 MG TAB PO SCH (16:04)
[2017-10-30] MEDS: Alogliptin 25 MG TAB PO SCH (16:04)
[2017-10-31] MEDS: Sodium Chloride 0.9% 1,000 ML IV SCH ×2 (01:37→15:54)
[2017-10-31 05:35] LABS: #Eosinphils 0.3 thou/uL (0.0-0.7); #Lymphocytes 1.2 thou/uL (1.20-3.40); #Monocytes 0.6 thou/uL (0.11-0.59); #Neutrophils 3.1 thou/uL (1.40-6.50); %Basophils 0.7 % (0.0-1.0); %Eosinophils 5.1 % (0.0-10.0); %Lymphocytes 23.5 % (21.0-51.0); %Monocytes 11.7 % (0.0-10.0); Hemoglobin 11.3 g/dL (14.0-18.0); Mean Corpuscular HGB CONC 33.6 g/dL (32.0-36.0); Mean Corpuscular Hemoglobin 30.6 pg (27.0-31.0); Mean Platelet Volume 8.4 fL (7.4-10.4); Platelet Count 53 thou/uL (130-400); RBC Distribution Width 13.9 % (11.5-14.5); White Blood Cell (WBC) Count 5.2 thou/uL (4.8-10.8)
[2017-10-31 05:54] LABS: ALT (SGPT) 16 U/L (8-55); AST (SGOT) 22 U/L (5-34); Albumin 3.3 g/dL (3.5-5.0); Alkaline Phosphatase 73 U/L (40-150); Anion Gap 9 mmol/L (10-20); BUN (Urea Nitrogen) 19 mg/dL (8.4-25.7); Bilirubin, Total 0.9 mg/dL (0.2-1.2); Calc. Creatinine Clearance 125 mL/min (70-130); Calcium 8.5 mg/dL (7.8-10.44); Carbon Dioxide 25 mmol/L (22-29); Chloride 103 mmol/L (98-107); Estimated GFR-MDRD 88; Globulin 2.9 g/dL (2.4-3.5); Glucose 168 mg/dL (70-105); Potassium 4.3 mmol/L (3.5-5.1); Protein, Total 6.2 g/dL (6.0-8.3); Sodium 133 mmol/L (136-145)
--- NOTE | 2017-10-31 07:42 | PRG ---
DATE OF SERVICE: 10/31/2017 SUBJECTIVE: The patient's pain is adequately controlled, passing flatus; however, has not had a bowel movement since admission on Friday. Voiding status reviewed, patient required CIC 3 times due to PVR 500 mL, last PVR 350, urethral void 250 mL. PE: Abdomen is soft, nontender, nondistended. PERTINENT LABORATORY DATA: Urinalysis demonstrates greater than 1000 glucose, negative leukocytes, no bacteria, 11-20 RBCs, catheterized specimen, culture is pending; however, the urinalysis does not demonstrate obvious UTI component. Creatinine 0.9, sodium 133. Due to significant glucosuria, I did obtain a hemoglobin A1c elevated at 7.2. IMPRESSION AND PLAN: Mr. Clarke is a 52-year-old male status postop day #2 status post L5-S1 foraminotomy. Patient with history of prior retention due to narcotic use. History of kidney stones with multiple surgeries in the past followed by urologist at a [facility]. continue Flomax and bladder rehab with PVR check every 6 hours, prompt to void . His urinary retention will likely resolve; however, I did discuss with the patient regarding multifactorial etiology of acute urinary retention due to recent Neurosurgery, possible diabetic cystoscopy component,, prior history of retention. No new recommendations, continue bladder rehabilitation as above. Dr. Adair will take over service as of tomorrow. The patient is to follow up with his urologist after discharge to monitor his voiding status. If patient continues to have persistent retention despite narcotics discontinued , he will require CIC teaching. MARJAN
[2017-10-31] MEDS: metFORMIN 500 MG TAB PO SCH ×2 (08:54→19:58)
[2017-10-31] MEDS: Insulin Detemir 100 UNITS/ML 20 UNITS in Pre-Filled Syringe 1 EACH SC SCH ×2 (08:55→21:06)
[2017-10-31] MEDS: Gabapentin 300 MG CAP PO SCH ×3 (08:56→21:06)
[2017-10-31] MEDS: Rifaximin 550 MG TAB PO SCH ×2 (08:57→21:06)
[2017-10-31] MEDS: Tamsulosin HCl 0.4 MG CAP PO SCH (08:57)
--- NOTE | 2017-10-31 11:26 | PDOC.PN ---
- Subjective Encounter Start Date: 10/31/17 Encounter Start Time: 08:20 Subjective: still has pain -: has voided once but has had increased residuals on 3 diff occasions - Objective MAR Reviewed: Yes Vital Signs & Weight: Vital Signs (12 hours) Temp Pulse Resp BP Pulse Ox 10/31/17 08:05 98.5 F 74 16 123/72 97 10/31/17 04:39 98.1 F 65 16 117/72 97 10/31/17 00:18 98.2 F 67 16 118/74 96 Weight Weight 208 lb I&O: 10/30/17 10/31/17 11/01/17 06:59 06:59 06:59 Intake Total 360 Output Total 1050 Balance -690 Result Diagrams: 10/31/17 05:08 10/31/17 05:08 Additional Labs: Accuchecks 10/30/17 10/30/17 10/30/17 21:03 17:28 11:50 POC Glucose 183 H 166 H 244 H Phys Exam - Physical Examination HEENT: PERRLA, moist MMs Neck: no JVD, supple Respiratory: no wheezing, no rales Cardiovascular: RRR, no significant murmur Gastrointestinal: soft, non-tender, positive bowel sounds Musculoskeletal: no edema, pulses present Neurological: non-focal, moves all 4 limbs Psychiatric: A&O x 3 Dx/Plan (1) Diabetes mellitus Code(s): E11.9 - TYPE 2 DIABETES MELLITUS WITHOUT COMPLICATIONS Status: Chronic Qualifiers: Diabetes mellitus type: type 2 Diabetes mellitus complication status: with unspecified complications Diabetes mellitus nursing home insulin use: with meterman use Qualified Code(s): E11.8 - Type 2 diabetes mellitus with unspecified complications; 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; Z79.4 - skilled nursing ( current) use of insulin; 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; Z79.4 - skilled nursing (current) use of insulin (2) HTN (hypertension) Code(s): I10 - ESSENTIAL (PRIMARY) HYPERTENSION Status: Chronic Qualifiers: Hypertension type: essential hypertension Qualified Code(s): I10 - Essential (primary) hypertension (3) Radiculopathy Code(s): M54.10 - RADICULOPATHY, SITE UNSPECIFIED Status: Chronic Comment: s /p lumbar [id number] removal with foraminotomy 10/29/17 (4) Urinary retention Code(s): R33.9 - RETENTION OF URINE, UNSPECIFIED Status: Acute - Plan is on flomax for urinary retention -: 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 Review of Systems - Medications/Allergies Allergies/Adverse Reactions: Allergies Allergy/AdvReac Type Severity Reaction Status Date / Time codeine Allergy Verified 07/25/17 09:36 Penicillins Allergy Verified 07/25/17 09:36 promethazine [From Phenergan] Allergy Verified 07/25/17 09:36 Medications: Current Medications Acetaminophen (Tylenol) 650 mg PO Q4H PRN PRN Reason: Headache/Fever or Pain(1-3) Acetaminophen (Tylenol) 650 mg AL Q4H PRN PRN Reason: Headache/Fever or Pain(1-3) Al Hydroxide/Mg Hydroxide (Maalox) 30 ml PO Q4H PRN PRN Reason: Heartburn or Indigestion Alogliptin Benzoate (Alogliptin) 12.5 mg PO QPM-WM [facility] Last Admin: 10/30/17 16:04 Dose: 12.5 mg Bisacodyl (Dulcolax) 10 mg AL Q12H PRN PRN Reason: Constipation Last Admin: 10/31/17 08:55 Dose: 10 mg Dextrose/Water (Dextrose 50%) 25 gm IVP PRN PRN PRN Reason: HYPOGLYCEMIA PROTOCOL Diphenhydramine HCl (Benadryl) 25 mg IM/IV Q3H PRN PRN Reason: Itching Last Admin: 10/30/17 12:29 Dose: 25 mg Diphenhydramine HCl (Benadryl) 25 mg PO Q3H PRN PRN Reason: Itching Last Admin: 10/31/17 01:36 Dose: 25 mg Gabapentin (Neurontin) 600 mg PO TID [facility] Last Admin: 10/31/17 08:56 Dose: 600 mg Glucagon (Glucagon) 1 mg IM PRN PRN PRN Reason: HYPOGLYCEMIA PROTOCOL Hydromorphone HCl (Dilaudid Cadd) 0 mg IV INF PRN PRN Reason: Pain Last Admin: 10/29/17 14:47 Dose: 10 mg Sodium Chloride (Normal Saline 0.9%) 1,000 mls @ 75 mls/hr IV .[id number] [facility] Last Admin: 10/31/17 01:37 Dose: 1,000 mls Insulin Detemir 20 units/ (Miscellaneous Medication) 0.2 mls @ 0 mls/hr SC HS [facility] Last Admin: 10/30/17 20:41 Dose: 0.2 mls Dextrose/Water (D5w) 1,000 mls @ 0 mls/hr IV INF PRN; As Directed PRN Reason: HYPOGLYCEMIA PROTOCOL Insulin Detemir 20 units/ (Miscellaneous Medication) 0.2 mls @ 0 mls/hr SC QAM [facility] Last Admin: 10/31/17 08:55 Dose: 0.2 mls Insulin Human Lispro (Humalog) 0 units SC .MILD SLIDING SCALE PRN PRN Reason: HYPERGLYCEMIA Last Admin: 10/30/17 12:29 Dose: 2 unit Magnesium Hydroxide (Milk Of Magnesium) 30 ml PO Q12H PRN PRN Reason: Constipation Last Admin: 10/30/17 16:11 Dose: 30 ml Metformin HCl (Glucophage) 1,000 mg PO BID-[facility] Last Admin: 10/31/17 08:54 Dose: 1,000 mg Metoprolol Succinate (Toprol Xl) 25 mg PO BID [facility] Last Admin: 10/31/17 08:57 Dose: 25 mg Naloxone HCl (Narcan) 0.2 mg IV Q5MIN PRN PRN Reason: RR <8 or pt obtun/unarousable Ondansetron HCl (Zofran) 4 mg IM Q24H PRN PRN Reason: Nausea/Vomiting Ondansetron HCl (Zofran) 4 mg IVP Q6H PRN PRN Reason: Nausea/Vomiting Last Admin: 10/30/17 10:38 Dose: 4 mg Pantoprazole Sodium (Protonix) 40 mg PO BID [facility] Last Admin: 10/31/17 08:57 Dose: 40 mg Promethazine HCl (Phenergan) 12.5 mg IM Q4H PRN PRN Reason: Nausea/Vomiting Rifaximin (Xifaxan) 550 mg PO BID [facility] Last Admin: 10/31/17 08:57 Dose: 550 mg Sodium Chloride (Flush - Normal Saline) 10 ml IVF PRN PRN PRN Reason: Saline Flush Tamsulosin HCl (Flomax) 0.4 mg PO DAILY SHIRIN Last Admin: 10/31/17 08:57 Dose: 0.4 mg Tizanidine HCl (Zanaflex) 4 mg PO Q6H PRN PRN Reason: MUSCLE SPASM Last Admin: 10/30/17 07:23 Dose: 4 mg Zolpidem Tartrate (Ambien) 5 mg PO HSPRN PRN PRN Reason: Insomnia
[2017-10-31] MEDS: HumaLOG 300 UNITS/3 ML VIAL SC PRN ×2 (12:52→16:12)
[2017-10-31] MEDS: HYDROmorphone 10 mg/100 ml CADD IV PRN (14:22)
[2017-10-31] MEDS ORDERED: HYDROcodone/Acetaminophen 10/325 mg Tablet PO PRN ×2 (15:32→15:33)
[2017-10-31] MEDS ORDERED: traMADol HCl 50 MG TAB PO PRN ×2 (15:34→15:35)
[2017-10-31] MEDS ORDERED: Fentanyl 100 MCG/2 ML VIAL SLOW IVP PRN (15:35)
[2017-10-31] MEDS: Alogliptin 25 MG TAB PO SCH (19:58)
[2017-10-31] MEDS: Acetaminophen 325 MG TAB PO PRN (19:58)
[2017-10-31 20:27] VITALS: BMI 31.3
[2017-11-01] MEDS: Sodium Chloride 0.9% 1,000 ML IV SCH (03:07)
[2017-11-01] MEDS: Acetaminophen 325 MG TAB PO PRN (04:07)
[2017-11-01] MEDS: metFORMIN 500 MG TAB PO SCH (08:25)
[2017-11-01] MEDS: Gabapentin 300 MG CAP PO SCH (08:26)
[2017-11-01] MEDS: Insulin Detemir 100 UNITS/ML 20 UNITS in Pre-Filled Syringe 1 EACH SC SCH (08:26)
[2017-11-01] MEDS: Tamsulosin HCl 0.4 MG CAP PO SCH (08:26)
[2017-11-01] MEDS: Rifaximin 550 MG TAB PO SCH (08:29)
[2017-11-01 09:04] VITALS: BP 162/78; TEMP 98.3
--- NOTE | 2017-11-01 09:57 | DIS ---
DATE OF ADMISSION: Admitted to [facility] on 10/29/[address] Ralph Tapia in the pos toperative period. DATE OF DISCHARGE: 11/01/2017 ADMISSION DIAGNOSES: Status post lumbar hardware removal and foraminotomy. DISCHARGE DIAGNOSES: Status post lumbar hardware removal and foraminotomy. HOSPITAL COURSE: Mr. Clarke hospital course was complicated by significant pain control issues with a DOOR ASSEMBLER placed. This was then removed and his pain has been significantly better. He did have trouble with urinary retention and then passed a kidney stone, his urinary output has been significantly bet ter and his back pain has improved immensely since that time. Consultations were placed, Dr. Shira kapadia with Urology for this purpose. Then it appeared that the urinary retention was likely the result of the narcotic pain medications that were in use. There was a Hospitalist consultation for the purpose of medical management as he is diabetic and has other comorbidities that warranted consul tation. At this time, he has reached the state where he is ambulating well and has drastically reduc ed pain and as such he was discharged home in good condition. He does have some mild drainage that i s persistent from the incision, but his incision is well approximated. The drainage is serosanguineo us in nature, and I think this is related to the fact that he has had significant number of lumbar sp ine surgeries, which could predicate these patients for serous drainage from scar tissue over time. There is no kathleen area of open incision and the drainage is diffuse. There is not a single area that appears to be the culprit. As such, my recommendation will be to continue to place pressure dressin g as needed and we will likely taper off in the coming days. The patient was discharged home with ou tpatient followup anticipated. This is Ralph Argueta PA-C dictating for Dr. Cline.
--- NOTE | 2017-11-01 11:39 | PDOC.PN ---
- Subjective Encounter Start Date: 11/01/17 Encounter Start Time: 09:15 Subjective: is ambulating in room -: getting his dressing changed to go home - Objective MAR Reviewed: Yes Vital Signs & Weight: Vital Signs (12 hours) Temp Pulse Resp BP Pulse Ox 11/01/17 08:30 98.3 F 76 16 162/78 H 96 11/01/17 04:00 98.6 F 77 16 137/79 95 11/01/17 00:18 99.1 F 84 18 125/73 96 Weight Weight 206 lb I&O: 10/31/17 11/01/17 11/02/17 06:59 06:59 06:59 Intake Total 1470 Output Total 3280 Balance -1810 Result Diagrams: 10/31/17 05:08 10/31/17 05:08 Additional Labs: Accuchecks 11/01/17 10/31/17 10/31/17 05:38 21:05 16:03 POC Glucose 183 H 168 H 202 H 10/31/17 10/31/17 12:44 05:49 POC Glucose 241 H 152 H Phys Exam - Physical Examination HEENT: PERRLA, moist MMs Neck: no JVD, supple Respiratory: no wheezing, no rales Cardiovascular: RRR, no significant murmur Gastrointestinal: soft, non-tender, positive bowel sounds Musculoskeletal: no edema, pulses present Neurological: non-focal, moves all 4 limbs Psychiatric: A&O x 3 Dx/Plan (1) Diabetes mellitus Code(s): E11.9 - TYPE 2 DIABETES MELLITUS WITHOUT COMPLICATIONS Status: Chronic Qualifiers: Diabetes mellitus type: type 2 Diabetes mellitus complication status: with unspecified complications Diabetes mellitus emt intermediate insulin use: with emt intermediate use Qualified Code(s): E11.8 - Type 2 diabetes mellitus with unspecified complications; Z79.4 - skilled nursing (current) use of insulin; Z79.4 - skilled nursing ( current) use of insulin; 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; 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 (2) HTN (hypertension) Code(s): I10 - ESSENTIAL (PRIMARY) HYPERTENSION Status: Chronic Qualifiers: Hypertension type: essential hypertension Qualified Code(s): I10 - Essential (primary) hypertension (3) Radiculopathy Code(s): M54.10 - RADICULOPATHY, SITE UNSPECIFIED Status: Chronic Comment: s /p lumbar L5-[id number] removal with foraminotomy 10/29/17 (4) Urinary retention Code(s): R33.9 - RETENTION OF URINE, UNSPECIFIED Status: Resolved - Plan 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
== END 2017-11-01 12:44 | disposition home or self-care (01) | DRG 460 ==
LOC: SURG A 06:06 → EDSTATUS 08:47 → SURG A 10:02
PROVIDERS: ADMIT Neurological Surgery; ATTEND Neurological Surgery
PROC: 0SG3071 Fusion of Lumbosacral Joint with Autologous Tissue Substitute, Posterior Approach, Posterior Column, Open Approach (ICD-10-PCS; principal; 2017-10-29)
DX: M48.061 Spinal stenosis, lumbar region without neurogenic claudication (principal); E11.8 Type 2 diabetes mellitus with unspecified complications; I10 Essential (primary) hypertension; M54.16 Radiculopathy, lumbar region; R33.0 Drug induced retention of urine; T39.95XA Adverse effect of unspecified nonopioid analgesic, antipyretic and antirheumatic, initial encounter; Z79.4 Long term (current) use of insulin
CPT/HCPCS: 36415; 36416; 76001; 80048; 80053; 81003; 81015; 83036; 83520; 85025; 87086; A4216; C1713; C1768; G8978-GP-CI; G8979-GP-CH; J0131; J1100; J1170; J1200; J1815; J1885; J1956; J2001; J2250; J2270; J2405; J2704; J3010; J3370; J3490

== ENCOUNTER 2017-11-13 16:06 | Outpatient (CLI) | payer OTHER ==
--- NOTE | 2017-11-13 16:26 | RAD ---
TWO VIEWS OF LUMBAR SPINE: HISTORY: Lumbar radiculopathy. FINDINGS: AP and lateral views of the lumbar spine were obtained. Images demonstrate pedical screws with fusion of the L3, L4, L5, and S1 levels. Anterior and posteri or fusion hardware is in place. No evidence of fracture is seen. There may be some loosening of the right and left S1 screws and there may be some subtle lucency surrounding them. POS: ROHAN
== END 2017-11-13 16:07 | disposition home or self-care (01) ==
LOC: TBSIIMAG 16:06
PROVIDERS: ATTEND Neurological Surgery
DX: M54.16 Radiculopathy, lumbar region (principal); Z98.1 Arthrodesis status
CPT/HCPCS: 72100

== ENCOUNTER 2018-01-08 13:42 | Outpatient (CLI) | payer OTHER ==
--- NOTE | 2018-01-08 15:35 | RAD ---
LUMBAR SPINE THREE VIEWS 01/08/18 COMPARISON: 11/13/17 HISTORY: Followup exam. FINDINGS: Interval removal of dorsal skin dona. There are stable bilateral transpedicular screws at L3, L4, L5 and S1. Suggested perihardware lucency involving the left and right transpedicular screw at S1 is again demonstrated. There is a metallic spacer at the L4-L5 disc space. Disc prosthesis at L3-L4 is a lso noted. There is no change in alignment. No fracture. Dorsal column stimulator is redemonstrated. There is a catheter type tip projecting over the right hemiabdomen, similar to the prior exam. IMPRESSION: Stable lumbar fusion. Stable perihardware lucency involving bilateral transpedicular screws at S1. POS: ROHAN
== END 2018-01-08 13:43 | disposition home or self-care (01) ==
LOC: TBSIIMAG 13:42
PROVIDERS: ATTEND Neurological Surgery
DX: M54.16 Radiculopathy, lumbar region (principal); Z98.1 Arthrodesis status
CPT/HCPCS: 72100

== ENCOUNTER 2018-02-17 10:56 | Outpatient (CLI) | payer OTHER ==
--- NOTE | 2018-02-17 12:59 | RAD ---
LUMBAR SPINE TWO VIEWS: History: 52-year-old male with history of low back pain and right leg and hamstring pain. Comparison: 01-08-18 FINDINGS: Extensive post-operative changes with overall stable appearance from 01-08-18. There appear to be stabl e bilateral renal calculi as well as stable appearing some type of catheter tip overlying the right a bdomen which is stable. Stable perihardware lucency changes bilaterally at S1. IMPRESSION: Stable appearing lumbar spine. Other findings as above. No significant new process. POS: BIBIANA
== END 2018-02-17 10:57 | disposition home or self-care (01) ==
LOC: TBSIIMAG 10:56
PROVIDERS: ATTEND Neurological Surgery
DX: M54.16 Radiculopathy, lumbar region (principal)
CPT/HCPCS: 72100

== ENCOUNTER 2018-04-02 13:10 | Outpatient (CLI) | payer OTHER ==
--- NOTE | 2018-04-02 14:08 | RAD ---
LUMBAR SPINE TWO VIEWS: INDICATIONS: Back pain. COMPARISON: 02/17/2018 FINDINGS: The posterolateral spinal contrast spanning L3 through S1 is unchanged. Instrumentation projects in the expected position. Spinal alignment is preserved. The dorsal column stimulator is unchanged. T he SI joints appear within normal limits. Spinal fluid is seen within the left hemipelvis. IMPRESSION: Stable postoperative lumbar spine when compared to the prior dated study of 02/17/2018. POS: BIBIANA
== END 2018-04-02 13:11 | disposition home or self-care (01) ==
LOC: TBSIIMAG 13:10
PROVIDERS: ATTEND Neurological Surgery
DX: M48.061 Spinal stenosis, lumbar region without neurogenic claudication (principal); Z98.890 Other specified postprocedural states
CPT/HCPCS: 72100